=== PATIENT | female | born 1990 | race Hispanic/Latino ===

== ENCOUNTER 2018-02-05 09:49 | Outpatient (CLI) | payer BC | END 2018-02-05 09:50 | disposition home or self-care (01) | LOC: BICULT 09:49 | PROVIDERS: ATTEND Obstetrics & Gynecology | DX: N63.10 Unspecified lump in the right breast, unspecified quadrant (principal) ==

== ENCOUNTER 2020-07-19 09:34 | Day surgery (SDC) | payer BC, OTHER ==
[2020-07-19] MEDS ORDERED: hydrALAZINE 20 MG/ML VIAL SLOW IVP PRN (10:43)
--- NOTE | 2020-07-19 12:32 | ULT ---
US Biophysical Profile History: Covid positive patient with decreased motion Comparison: None Findings: Real-time grayscale evaluation of the gravid uterus was performed. The biophysical profile score is 8/8. The position is breech and the placenta is posterior. Fet al heart rate is documented at 147 bpm. Amniotic fluid index: 11.2 cm Impression: Normal biophysical profile score of 8/8.
--- NOTE | 2020-07-19 12:38 | PRG ---
DATE OF SERVICE: 07/19/2020 REASON FOR PRESENTATION: Biophysical profile and NST at 34 weeks with diabetes, gestational type 2 with COVID-19 acute at 34 weeks and 6 days. HISTORY OF PRESENT ILLNESS: The patient was sent over for BPP and NST. She has recently been diagnosed with CoV-2. She has mild symptoms. Reports an active fetus. Denies contractions. She is also diabetic, pre-gestational, moderate control. Blood sugars have been running 130s to 140s. She is using NPH and metformin. Vital signs are within normal limits today on the Labor and Delivery unit. She is afebrile. She complains of mild cough. Biophysical profile is 8/8 with an DESTINEY of 11, breech presentation. A nonstress test is reactive with a baseline of 140s, positive accelerations, no decelerations. IMPRESSION: 34 weeks on labor and delivery for antepartum testing secondary to absence of positive-pressure ventilation rooms at ambulatory office. PLAN: Discharge home. Keep scheduled followup. ER precautions. Job ID: [id number]
== END 2020-07-19 12:17 | disposition home or self-care (01) ==
LOC: L&D/OP 09:34
PROVIDERS: ATTEND Student in an Organized Health Care Education/Training Program
DX: O36.8130 Decreased fetal movements, third trimester, not applicable or unspecified (principal); O98.513 Other viral diseases complicating pregnancy, third trimester; U07.1 COVID-19; O24.414 Gestational diabetes mellitus in pregnancy, insulin controlled; Z3A.34 34 weeks gestation of pregnancy; Z79.4 Long term (current) use of insulin; Z79.82 Long term (current) use of aspirin; Z79.899 Other long term (current) drug therapy
CPT/HCPCS: 76819

== ENCOUNTER 2020-07-21 18:24 | Emergency (ER) | payer OTHER ==
[2020-07-21 19:15] LABS: Bilirubin Negative (Negative); Blood, Urine Negative (Negative); Clarity Clear (Clear); Glucose, Urine (Dipstick) Greater than 1000 mg/dL (Negative); Ketone, Urine Negative (Negative); Leukocyte Negative Leu/uL (Negative); Nitrite Negative (Negative); Protein, Urine (Dipstick) Negative (Neg-Trace); Specific Gravity, Urine 1.026 (1.002-1.036); Urobilinogen Normal mg/dL (Less than 2); pH, Urine 6.5 (5.0-9.0)
[2020-07-21 19:22] LABS: #Lymphocytes 1.1 thou/uL (1.20-3.40); #Monocytes 0.4 thou/uL (0.11-0.59); #Neutrophils 4.1 thou/uL (1.40-6.50); %Basophils 0.2 % (0.0-1.0); %Eosinophils 0.1 % (0.0-10.0); %Lymphocytes 19.7 % (21.0-51.0); %Monocytes 7.2 % (0.0-10.0); %Neutrophils 72.7 % (42.0-75.0); Hemoglobin 11.5 g/dL (12.0-16.0); Mean Corpuscular HGB CONC 34.7 g/dL (32.0-36.0); Mean Corpuscular Hemoglobin 30.2 pg (27.0-31.0); Mean Corpuscular Volume 87.1 fL (78.0-98.0); Mean Platelet Volume 11.6 fL (7.4-10.4); Platelet Count 113 thou/uL (130-400); RBC Distribution Width 11.8 % (11.5-14.5); Red Blood Cell (RBC) Count 3.82 mill/uL (4.20-5.40); White Blood Cell (WBC) Count 5.6 thou/uL (4.8-10.8)
[2020-07-21 19:43] LABS: ALT (SGPT) 9 U/L (8-55); AST (SGOT) 14 U/L (5-34); Albumin 2.8 g/dL (3.5-5.0); Alkaline Phosphatase 153 U/L (40-110); Anion Gap 13 mmol/L (10-20); BUN (Urea Nitrogen) 9 mg/dL (7.0-18.7); Bilirubin, Total 0.2 mg/dL (0.2-1.2); Calc. Creatinine Clearance 0 mL/min (70-130); Calcium 8.6 mg/dL (7.8-10.44); Carbon Dioxide 21 mmol/L (22-29); Chloride 105 mmol/L (98-107); Estimated GFR-MDRD Greater than 90; Globulin 3.6 g/dL (2.4-3.5); Glucose 252 mg/dL (70-105); Potassium 3.7 mmol/L (3.5-5.1); Protein, Total 6.4 g/dL (6.0-8.3); Sodium 135 mmol/L (136-145)
--- NOTE | 2020-07-21 20:18 | PDOC.CONS ---
<Melinda Laguerre - Last Filed: 07/21/20 21:19> - Consultation Encounter Date: 07/21/20 Encounter Time: 20:10 30YO @ 35 WGA who presented to the ED for evaluation for abdominal tightening. Of note, she tested positive for COVID-19 on 07/18/20. OB hospitalist was consulted for evaluation for a full obstetrical evaluation. On exam, patient had no complaints and was in NAD. PMH: h/o kidney stones, DMII PSH: h/o C/S x3 Meds: metformin, NPH, Humulin, fluoxetine, ASA Allergies: NKDA FH: non-contributory Social: No TAD. Labs: WBC 5.6, H/H 11.5/33.3, Plt 113 Na 135, K 3.7, Cl 105, CO2 21, BUN 9, Cr 0.74, glucose 252, AST/ALT 14/9, alk phos 153 UA: clear, >1000 glucose, no protein, ketones, blood or LE PE: Vitals: BP 121/87, HR 109, RR 18, O2 sat 96% on RA, Tmax 99.4F, Wt 96 kg General: Sitting up comfortably in bed in NAD HEENT: normocephalic, eyes & nares clear, MMM Respiratory: No respiratory distress but dry cough noted Abdomen: gravid : SVE: closed/thick/high, copious amount of thick, white d/c noted with cervical check Skin: clean, dry & intact Neuro: no focal deficits, jewelry technician grossly intact Psych: mood & affect appropriate & WNLs A/P: 30YO @ 35 WGA who presented to the ED for evaluation for abdominal tightening who was noted to be + for COVID-19 on 07/18/2020. contractions, r/o labor: - Reactive NST but baseline @ ~165-170 w/ accels noted. Uterine irritability but no contractions noted on monitor. Cervical check revealed a closed cervix. No concern for PTL. Likely a few [place] contractions in setting of acute illness. - FHTs returned to normal baseline of ~155 s/p ~900mL of 1,000mL fluid bolus. Will give rest of bolus & encouraged aggressive PO hydration at home. COVID-19 infection in 3T : - tested + on 07/18/2020 - Vitals & labwork not concerning for dehydration or severe infection necessitating admission. Recommend home care with aggressive PO hydration and close monitoring of respiratory status. Also recommend close follow-up with PCP via telehealth. - Has a BPP/NST CHAD here on 07/26/20 for continued close monitoring. Vulvovaginal candidiasis: - thick, white d/c noted on exam in setting of hyperglycemia & severe glucosuria. Will empirically treat w/ vaginal clotrimazole x 7 days. pre-GDM: - Likely uncontrolled based on UA & BG level on CMP today. - Instructed to follow-up with PCP this week via telehealth for close monitoring of BG levels & titration of meds PRN. Dispo: Ok to d/c home with instructions for close f/u w/ PCP. Patient was seen and examined by attending, Dr. Jamie Heart, as well who is in agreement with the assessment and plan. <Anton Heart - Last Filed: 07/21/20 23:35> Addendum - Attending - Attending Attestation Date/Time: 07/21/20 [id number] I personally evaluated the patient and discussed the management with Dr. Laguerre. at 35 weeks seen in ER with FORREST flor. also c/o abdominal cramping. FHTs stable, no evidence of active labor at this time. I agree with the History, Examination, Assessment and Plan documented above with any addition or exceptions noted below.
== END 2020-07-21 21:50 | disposition home or self-care (01) ==
LOC: ERS 18:24
DX: O98.513 Other viral diseases complicating pregnancy, third trimester (principal); U07.1 COVID-19; Z3A.35 35 weeks gestation of pregnancy; O98.813 Other maternal infectious and parasitic diseases complicating pregnancy, third trimester; O99.343 Other mental disorders complicating pregnancy, third trimester; F32.9 Major depressive disorder, single episode, unspecified; B37.9 Candidiasis, unspecified; O99.333 Smoking (tobacco) complicating pregnancy, third trimester; O24.113 Pre-existing type 2 diabetes mellitus, in pregnancy, third trimester; E11.9 Type 2 diabetes mellitus without complications
CPT/HCPCS: 36415; 59025; 80053; 81003; 85025; 87086; 99284

== ENCOUNTER 2020-07-26 09:09 | Day surgery (SDC) | payer OTHER ==
[2020-07-26 09:53] VITALS: BP 120/73; TEMP 98.3; BMI 35.1
--- NOTE | 2020-07-26 11:23 | ULT ---
Exam: Nonstress biophysical profile COMPARISON: 07/19/2020 HISTORY: Type 2 diabetes TECHNIQUE: Nonstress biophysical profile was performed. FINDINGS: Single intrauterine gestation Limited evaluation cervix due to shadowing Presentation: Breech Amniotic fluid index 10.4 cm heart tones: 152 bpm Placenta location: Right-sided placenta Nonstress biophysical profile: tone 2 breathing 2 movements 2 Amniotic fluid 2 Total score 8 out of 8 IMPRESSION: Nonstress biophysical profile. Total score is 8 out of 8.
--- NOTE | 2020-07-26 12:06 | PDOC.LDHP ---
Labor and Delivery H&P Chief complaint: decreased movement HPI: 30 y/o at 35w6d, patient of Dr. Barbosa, sent for NST/BPP. Complains of decreased movement and general malaise related to COVID-19. Denies VB, LOF, ctx, or other concerns. Has telemedicine appointment with Dr. Barbosa later today. ROS neg for HEENT, CV, pulm, GI, , neuro, psych, skin, musculoskeletal, or constitutional symptoms other than mentioned above. OB History Details: 3 prior LTCS Current complications: pregestational diabetes, other (COVID-19 positive) Past Medical History: T2DM kidney stones Current medications: pre-brett vitamins, other (NPH, humulin, fluoxitine, metformin, aspirin) Previous surgical history: low tranverse CS (x3) Allergies/Adverse Reactions: Allergies Allergy/AdvReac Type Severity Reaction Status Date / Time No Known Allergies Allergy Verified 07/26/20 09:54 Social history: none - Physical Exam Vital signs reviewed and normal: yes General: NAD, resting Heart: other Lungs: nonlabored breathing Abdomen: gravid Extremeties: no edema FHT: category 1 (150s, mod variability, + accels, no decels) [place] contractions every: none - Assessment 30 y/o at 35w6d with reassuring status with BPP 07/21. - Plan -: D/c home with precautions. Advised to keep appointment for today.
== END 2020-07-26 11:25 | disposition home or self-care (01) ==
LOC: L&D/OP 09:09
PROVIDERS: ATTEND Student in an Organized Health Care Education/Training Program
DX: O98.513 Other viral diseases complicating pregnancy, third trimester (principal); U07.1 COVID-19; O36.8130 Decreased fetal movements, third trimester, not applicable or unspecified; O24.414 Gestational diabetes mellitus in pregnancy, insulin controlled; O34.211 Maternal care for low transverse scar from previous cesarean delivery; Z3A.35 35 weeks gestation of pregnancy; Z79.4 Long term (current) use of insulin; Z79.82 Long term (current) use of aspirin; Z79.899 Other long term (current) drug therapy
CPT/HCPCS: 76819; 99282

== ENCOUNTER 2020-08-03 07:30 | Inpatient (IN) | payer BC, OTHER ==
[2020-08-03] MEDS ORDERED: hydrALAZINE 20 MG/ML VIAL SLOW IVP PRN ×2 (10:51→15:04)
[2020-08-03] MEDS ORDERED: Promethazine HCl 25 MG/ML VIAL IM PRN ×3 (10:51→15:04)
[2020-08-03] MEDS ORDERED: Ondansetron PF 4 MG/2 ML Vial IVP PRN ×3 (10:51→15:04)
[2020-08-03] MEDS ORDERED: Lactated Ringer's 1,000 ML IV SCH (10:51)
[2020-08-03] MEDS ORDERED: Bicitra 30 ML UDCUP PO SCH (10:51)
[2020-08-03] MEDS ORDERED: CEFAZOLIN 2 GM in Premix Bag 1 BAG IVPB SCH (10:51)
[2020-08-03 11:27] VITALS: BMI 36.1
[2020-08-03 11:29] LABS: Mean Corpuscular HGB CONC 34.7 g/dL (32.0-36.0); Mean Corpuscular Hemoglobin 29.7 pg (27.0-31.0); Mean Corpuscular Volume 85.5 fL (78.0-98.0); Platelet Count 150 thou/uL (130-400); RBC Distribution Width 12.9 % (11.5-14.5); Red Blood Cell (RBC) Count 4.03 mill/uL (4.20-5.40); White Blood Cell (WBC) Count 7.2 thou/uL (4.8-10.8)
[2020-08-03 12:01] LABS: Syphilis Antibody Nonreactive (Nonreactive); Syphilis Antibody Index 0.08 S/CO (<1.00 Non-Reactive)
[2020-08-03] MEDS ORDERED: Oxytocin 10 UNITS/ML VIAL ONE (12:05)
--- NOTE | 2020-08-03 12:15 | PDOC.LDHP ---
Labor and Delivery H&P Chief complaint: scheduled section HPI: 30yo at 37w0d by LMP here for RCS due to GHTN, uncontrolled IDDM. Hx of symptomatic COVID 19 earlier this month. Asymptomatic for last 10 days, cough as resolved Allergies/Adverse Reactions: Allergies Allergy/AdvReac Type Severity Reaction Status Date / Time No Known Allergies Allergy Verified 08/03/20 11:27
[2020-08-03] MEDS ORDERED: Ketamine 50 MG/ML (10ML VIAL) ONE (12:37)
[2020-08-03] MEDS ORDERED: Midazolam HCl 2 mg/2 ml Vial ONE (12:38)
--- NOTE | 2020-08-03 13:01 | PDOC.OPDEL ---
OB Operative/Delivery Note Delivery Dr/Surgeon: Chelsey Assist: Abhijit Pre-Delivery Diagnosis: scheduled section Procedure/Post Delivery Dx: repeat low transverse CS (and bilateral salpingectomy) Weeks gestation: 37 Anesthesia: spinal - Findings A Sex: female Weight: 8 lb 11 oz - 1 min: 9 - 5 min: 9 - Additional Findings/Plan Placenta delivered: spontaneous findings: low transverse hysterotomy without extension, normal uterus, normal tubes, normal ovaries Estimated blood loss: 700cc Compilations/Other Findings: breech presentation Post delivery plan: routine recovery
[2020-08-03] MEDS ORDERED: Promethazine HCl 25 MG SUPP PR PRN (13:05)
[2020-08-03] MEDS ORDERED: L&D-Morphine 4 MG/ML VIAL SLOW IVP PRN (13:05)
[2020-08-03] MEDS ORDERED: Ondansetron HCl/PF 4 MG/2 ML Vial IVP PRN (13:05)
[2020-08-03] MEDS ORDERED: HYDROmorphone 2 MG/ML VIAL SLOW IVP PRN (13:05)
[2020-08-03] MEDS ORDERED: Naloxone HCl 0.4 mg/ml Vial IVP PRN ×2 (13:05)
[2020-08-03] MEDS ORDERED: diphenhydrAMINE 50 MG/ML VIAL IVP PRN (13:05)
[2020-08-03] MEDS ORDERED: Naloxone HCl 0.4 mg/ml Vial IV PRN (13:05)
[2020-08-03] MEDS ORDERED: Communication Order-Pharmacy FS SCH (13:15)
[2020-08-03 14:57] LABS: HBSAg Index 0.14 S/CO (0-0.99); Hep B Surf Ag Non-Reactive S/CO (NonReactive)
[2020-08-03] MEDS ORDERED: Dextrose 5% in Water 1,000 ML IV PRN (15:04)
[2020-08-03] MEDS ORDERED: Bisacodyl 10 MG SUPP PR PRN (15:04)
[2020-08-03] MEDS ORDERED: Acetaminophen 325 MG TAB PO PRN (15:04)
[2020-08-03] MEDS ORDERED: Lanolin Ointment 7 GM TUBE TOP PRN (15:04)
[2020-08-03] MEDS ORDERED: Dextrose 50% Abboject 50 ML SYRINGE SLOW IVP PRN (15:04)
[2020-08-03] MEDS ORDERED: diphenhydrAMINE 25 MG CAP PO PRN (15:04)
[2020-08-03] MEDS ORDERED: Zolpidem Tartrate 5 MG TAB PO PRN (15:04)
[2020-08-03 15:15] LABS: ALT (SGPT) 11 U/L (8-55); AST (SGOT) 11 U/L (5-34); Albumin 2.9 g/dL (3.5-5.0); Alkaline Phosphatase 125 U/L (40-110); Anion Gap 15 mmol/L (10-20); BUN (Urea Nitrogen) 8 mg/dL (7.0-18.7); Bilirubin, Total 0.3 mg/dL (0.2-1.2); Calc. Creatinine Clearance 182 mL/min (70-130); Calcium 9.1 mg/dL (7.8-10.44); Carbon Dioxide 24 mmol/L (22-29); Chloride 102 mmol/L (98-107); Estimated GFR-MDRD Greater than 90; Globulin 3.7 g/dL (2.4-3.5); Glucose 154 mg/dL (70-105); Potassium 4.4 mmol/L (3.5-5.1); Protein, Total 6.6 g/dL (6.0-8.3); Sodium 137 mmol/L (136-145)
[2020-08-03] MEDS ORDERED: NS / Oxytocin 40 units/1000ml 1,000 ML ONE (15:15)
[2020-08-03] MEDS: Ketorolac Tromethamine 30 MG/ML VIAL IVP PRN (16:55)
--- NOTE | 2020-08-03 18:05 | OP ---
DATE OF PROCEDURE: 08/03/2020 PREOPERATIVE DIAGNOSES: 1. Intrauterine at 37 weeks and 0 days. 2. Gestational hypertension. 3. Type 2 diabetes, insulin dependent, uncontrolled. 4. Breech presentation. 5. Prior x3, declines trial of labor. 6. Sterilization. POSTOPERATIVE DIAGNOSES: 1. Intrauterine at 37 weeks and 0 days. 2. Gestational hypertension. 3. Type 2 diabetes, insulin dependent, uncontrolled. 4. Breech presentation. 5. Prior x3, declines trial of labor. 6. Sterilization. PROCEDURES PERFORMED: Repeat low transverse section via Pfannenstiel skin incision and bilateral salpingectomy. ESTIMATED BLOOD LOSS: 700 mL. COMPLICATIONS: None. DRAINS: Randhawa catheter. PATHOLOGY: Bilateral fallopian tubes. FINDINGS: Female in [place] breech presentation. Copious clear amniotic fluid. Apgars 9 and 9. Weight is 8 pounds 11 ounces. Hysterotomy without extension. Thin lower uterine segment. Omental adhesions to the anterior abdominal wall. Normal uterus, ovaries, and tubes bilaterally. Excellent hemostasis. DESCRIPTION OF PROCEDURE: The patient was taken to the operating room, where spinal anesthesia was obtained without difficulty. The patient was prepped and draped in a sterile fashion in the dorsal supine position with a leftward tilt. After ensuring adequacy of anesthesia, a Pfannenstiel skin incision was made and carried down to the underlying subcutaneous tissue with a knife. The fascia was nicked in the midline with a knife and carried laterally with the Gamble scissors. The superior aspect of the fascia was tented with 2 Alicia's and dissected off the rectus sharply with the Gamble's. The inferior aspect of the fascia was tented with 2 Alicia's and dissected off the rectus down to the pubic symphysis. Being careful to stay preperitoneal in order to avoid bladder injury. The peritoneum was bluntly entered into and manually retracted. The Anselmo O retractor was placed and the lower uterine segment was incised in a transverse fashion. The breech was brought to the hysterotomy and delivered with standard breech maneuvers without difficulty. The 's cord was clamped and handed to awaiting Cole team. Cord blood was collected and the placenta was allowed to spontaneously deliver. The uterus was cleared of all clots and debris and repaired with a #1 Monocryl in a running locking fashion. Hemostasis was noted. A warm moist lap was placed over the hysterotomy and the uterus was delivered out of the abdomen. The right fallopian tube was grasped and elevated with a Maitland clamp. The windows were made along the arcade vessels in the mesosalpinx. These vessels were then clamped with hemostats. The tube was then incised with the Metzenbaums and the vascular pedicles and the hemostats were tied off with 2-0 chromic. The same procedure was carried out on the left side. Hemostasis was noted. The uterus was placed back into the abdomen. The lap sponge was removed and the pelvis was irrigated and suctioned. Hemostasis was noted of the hysterotomy. The fallopian tube sites were then examined and noted to be hemostatic. The Anselmo O retractor was removed out of the abdomen. The rectus muscles were examined and cauterized of any bleeders. The fascia was reapproximated with 0 PDS x2 sutures with excellent reapproximation. The subcutaneous tissue was irrigated and cauterized of any bleeders and reapproximated with a 2-0 plain gut in a running fashion. The skin was closed with staple and a pressure dressing was applied. The patient tolerated the procedure well. Sponge and needle counts correct x2. The patient was taken to recovery room in stable condition. The patient received Ancef 2 g prior to the procedure. Job ID: [id number]
[2020-08-03] MEDS: Docusate Calcium (SURFAK) 240 MG CAP PO SCH (20:51)
[2020-08-03] MEDS: Ferrous Sulfate 325 MG TAB PO SCH (20:51)
[2020-08-03] MEDS: Simethicone Chewable 80 MG TAB PO PRN (20:59)
[2020-08-04] MEDS: Ketorolac Tromethamine 30 MG/ML VIAL IVP PRN (01:40)
[2020-08-04] MEDS: HYDROcodone/Acetaminophen 5/325 mg Tablet PO PRN ×5 (03:26→22:08)
[2020-08-04] MEDS: Insulin Regular 300 UNITS/3 ML VIAL SC PRN ×5 (04:53→22:03)
--- NOTE | 2020-08-04 06:09 | PDOC.PP ---
Post Progress Note Post Day #: 1 Subjective: doing well. No pain issues PO intake tolerated: yes Flatus: yes Ambulation: yes Vital Signs (12 hours) Temp Pulse Resp BP Pulse Ox 08/04/20 04:00 98.1 F 73 16 119/59 L 08/04/20 00:05 98.5 F 66 16 119/72 08/03/20 20:30 97.8 F 63 16 124/66 98 Weight Weight 217 lb - Physical Examination General: NAD Cardiovascular: no m/r/g Respiratory: clear to auscultation bilaterally, non-labored breathing Abdominal: + bowel sounds, no distention, appropriately TTP Extremities: negative homans (B) Skin: CS incision dry & intact (Original CS dressing still on until noon; states has padmini in place) Neurological: no gross focal deficits Psychiatric: A&Ox3, normal affect Result Diagrams: 08/03/20 11:12 08/03/20 14:41 Additional Labs: Post Labs Hep Bs Antigen Non-Reactive S/CO (NonReactive) 08/03/20 11:12 Blood Type O POSITIVE 08/03/20 11:12 (1) Diabetes Code(s): E11.9 - TYPE 2 DIABETES MELLITUS WITHOUT COMPLICATIONS Status: Acute Qualifiers: Diabetes mellitus type: type 2 Diabetes mellitus complication status: without complication (2) delivery, delivered, current hospitalization Code(s): O82 - ENCOUNTER FOR DELIVERY WITHOUT INDICATION Status: Acute - Assessment/Plan POD1 s/p repeat CS #4, doing well. HX prepreg DM...on metformin 1000mg po BID. BS this AM was 172. Follow sugars. Desires prob DC POD3. Dressing off at noon today. Has padmini in use.
[2020-08-04 06:22] LABS: Hemoglobin 10.3 g/dL (12.0-16.0); Mean Corpuscular HGB CONC 34.3 g/dL (32.0-36.0); Mean Corpuscular Hemoglobin 29.8 pg (27.0-31.0); Mean Corpuscular Volume 86.7 fL (78.0-98.0); Mean Platelet Volume 11.5 fL (7.4-10.4); Platelet Count 118 thou/uL (130-400); RBC Distribution Width 12.8 % (11.5-14.5); Red Blood Cell (RBC) Count 3.46 mill/uL (4.20-5.40); White Blood Cell (WBC) Count 10.3 thou/uL (4.8-10.8)
[2020-08-04] MEDS: Docusate Calcium (SURFAK) 240 MG CAP PO SCH ×2 (08:06→21:55)
[2020-08-04] MEDS: Prenatal Vitamin 1 TAB PO SCH (08:06)
[2020-08-04] MEDS: metFORMIN 500 MG TAB PO SCH ×2 (08:06→16:45)
[2020-08-04] MEDS: Simethicone Chewable 80 MG TAB PO PRN ×2 (08:12→21:56)
[2020-08-04] MEDS: Ferrous Sulfate 325 MG TAB PO SCH ×2 (09:16→23:39)
[2020-08-04] MEDS: Ibuprofen 800 MG TAB PO SCH ×2 (13:55→21:55)
[2020-08-04] MEDS ORDERED: Adacel (T-DAP) 0.5 ML SYRINGE IM ONE (15:04)
[2020-08-05] MEDS: Simethicone Chewable 80 MG TAB PO PRN ×2 (03:03→07:45)
[2020-08-05] MEDS: HYDROcodone/Acetaminophen 5/325 mg Tablet PO PRN ×4 (03:03→18:01)
[2020-08-05] MEDS: Ibuprofen 800 MG TAB PO SCH ×3 (05:33→22:13)
[2020-08-05] MEDS: Ferrous Sulfate 325 MG TAB PO SCH ×2 (07:00→22:08)
[2020-08-05] MEDS: Prenatal Vitamin 1 TAB PO SCH (07:45)
[2020-08-05] MEDS: Docusate Calcium (SURFAK) 240 MG CAP PO SCH ×2 (07:45→22:14)
[2020-08-05] MEDS: metFORMIN 500 MG TAB PO SCH ×2 (07:45→17:24)
--- NOTE | 2020-08-05 08:20 | PRG ---
DATE OF SERVICE: 08/05/2020 Note SUBJECTIVE: The patient is a 30-year-old female, postop day #2 status post a repeat . Her antepartum course was complicated by gestational hypertension and B diabetes. Per , the patient was placed on 1000 mg p.o. b.i.d. of metformin yesterday morning. Her blood sugars over the last 24 hours remain elevated at 159, 162 and 151 postprandial. Fasting this morning was 136. The reports she is tolerating p.o., voiding on her own, having decreased lochia and good pain control. OBJECTIVE: VITAL SIGNS: This morning blood pressure is 142/76, temperature 98.3, pulse of 82, respiratory rate of 16. GENERAL: She appears to be in no acute distress. She is alert, oriented, cooperative, and pleasant to interact with. HEENT: Head is normocephalic, atraumatic. Incision is clean, dry, and intact with suture. ASSESSMENT AND PLAN: The patient is a 30-year-old female, postoperative day #2 status post repeat section with her course complicated by gestational hypertension and B diabetes. We will continue antepartum care here in the hospital. We will continue to watch over the next 24 hours closely how she responds to another day of metformin. Dr. Barbosa will be assuming care tomorrow. They can discuss adjusting medications as needed. Job ID: [id number]
[2020-08-05] MEDS ORDERED: Measles/Mumps/Rubella 10 MCG/0.5 ML VIAL SC ONE (10:30)
[2020-08-05] MEDS: Insulin Regular 300 UNITS/3 ML VIAL SC PRN (11:18)
[2020-08-06] MEDS: Ibuprofen 800 MG TAB PO SCH ×2 (05:28→13:56)
[2020-08-06] MEDS: Docusate Calcium (SURFAK) 240 MG CAP PO SCH (08:36)
[2020-08-06] MEDS: Prenatal Vitamin 1 TAB PO SCH (08:36)
[2020-08-06] MEDS: metFORMIN 500 MG TAB PO SCH ×2 (08:36→16:56)
[2020-08-06] MEDS: HYDROcodone/Acetaminophen 5/325 mg Tablet PO PRN ×2 (08:39→17:52)
[2020-08-06] MEDS: Simethicone Chewable 80 MG TAB PO PRN ×2 (08:39→17:52)
[2020-08-06] MEDS: Ferrous Sulfate 325 MG TAB PO SCH (09:11)
[2020-08-06 09:28] VITALS: BP 130/66; TEMP 98.1
[2020-08-06] MEDS: Insulin Regular 300 UNITS/3 ML VIAL SC PRN ×2 (11:22→16:56)
[2020-08-06] MEDS ORDERED: Measles/Mumps/Rubella 10 MCG/0.5 ML VIAL SC ONE (12:09)
--- NOTE | 2020-08-06 12:10 | PDOC.PP ---
Post Progress Note Post Day #: 3 PO intake tolerated: yes Flatus: yes Ambulation: yes Vital Signs (12 hours) Temp Pulse Resp BP Pulse Ox 08/06/20 08:35 98.1 F 87 20 130/66 98 Weight Weight 217 lb - Physical Examination General: NAD Respiratory: non-labored breathing Abdominal: no distention, appropriately TTP Fundus firm & at: umb-2 Skin: CS incision dry & intact Neurological: no gross focal deficits Psychiatric: normal affect Result Diagrams: 08/04/20 06:08 08/03/20 14:41 Additional Labs: Post Labs Hep Bs Antigen Non-Reactive S/CO (NonReactive) 08/03/20 11:12 Blood Type O POSITIVE 08/03/20 11:12 - Assessment/Plan POD3 s/p RCS and RRS VSSAF Met all postop milestones Baby out of NICU, bottlefeeding Mild postop anemia, asx, cont PNV on DC Rh pos RNI MMR prior to DC DC home with baby, FU 2w
[2020-08-08] MEDS ORDERED: Ibuprofen 800 MG TAB PO SCH (22:00)
== END 2020-08-06 17:56 | disposition home or self-care (01) | DRG 783 ==
LOC: L&D 10:20 → 3SW 15:22
PROVIDERS: ADMIT Student in an Organized Health Care Education/Training Program; ATTEND Student in an Organized Health Care Education/Training Program
PROC: 10D00Z1 Extraction of Products of Conception, Low, Open Approach (ICD-10-PCS; principal; 2020-08-03)
PROC: 0UB70ZZ Excision of Bilateral Fallopian Tubes, Open Approach (ICD-10-PCS; 2020-08-03)
DX: O34.219 Maternal care for unspecified type scar from previous cesarean delivery (principal); O24.12 Pre-existing type 2 diabetes mellitus, in childbirth; D62 Acute posthemorrhagic anemia; O13.4 Gestational [pregnancy-induced] hypertension without significant proteinuria, complicating childbirth; E11.9 Type 2 diabetes mellitus without complications; Z3A.37 37 weeks gestation of pregnancy; Z37.0 Single live birth; O32.1XX0 Maternal care for breech presentation, not applicable or unspecified; Z30.2 Encounter for sterilization
CPT/HCPCS: 36415; 36416; 51702; 80053; 85027; 86780; 86850; 86900; 86901; 87340; 88302; 90707; J0690; J1815; J1885; J2250; J2270; J2405; Q0163

== ENCOUNTER 2020-11-14 12:12 | Outpatient (CLI) | payer OTHER ==
--- NOTE | 2020-11-14 13:58 | RAD ---
THREE VIEWS OF THE LEFT FOOT: 11/14/20 COMPARISON: None. HISTORY: Left foot pain. FINDINGS: There is no displaced fracture or evidence of dislocation. No radiopaque foreign body or subcutaneous gas. If symptoms persists, follow-up MRI may be beneficial to evaluate for a radio-occult osseous ab normality or a soft tissue abnormality to explain the patient's pain. IMPRESSION: No acute osseous abnormality. POS: [facility]
== END 2020-11-14 12:13 | disposition home or self-care (01) ==
LOC: BICRAD 12:12
PROVIDERS: ATTEND Family Medicine
DX: M79.672 Pain in left foot (principal)

== ENCOUNTER 2021-12-04 02:59 | Emergency (ER) | payer OTHER | END 2021-12-04 04:46 | disposition home or self-care (01) | LOC: ERS 02:59 | DX: B34.9 Viral infection, unspecified (principal); E11.9 Type 2 diabetes mellitus without complications; F17.210 Nicotine dependence, cigarettes, uncomplicated; Z79.84 Long term (current) use of oral hypoglycemic drugs; Z79.899 Other long term (current) drug therapy | CPT/HCPCS: 99283 ==

== ENCOUNTER 2022-12-27 21:01 | Emergency (ER) | payer OTHER ==
[2022-12-27] MEDS ORDERED: HYDROcodone/Acetaminophen 10/325 mg Tablet ONE (21:59)
== END 2022-12-27 22:03 | disposition home or self-care (01) ==
LOC: ERS 21:01
DX: N60.01 Solitary cyst of right breast (principal); E11.9 Type 2 diabetes mellitus without complications
CPT/HCPCS: 99284

== ENCOUNTER 2023-06-09 10:18 | Emergency (ER) | payer OTHER ==
[2023-06-09] MEDS ORDERED: Ketorolac Tromethamine 30 MG/ML VIAL ONE (10:58)
[2023-06-09 11:04] LABS: #Monocytes 0.4 thou/uL (0.11-0.59); #Neutrophils 4.3 thou/uL (1.40-6.50); %Basophils 0.5 % (0.0-1.0); %Eosinophils 0.6 % (0.0-10.0); %Lymphocytes 24.7 % (21.0-51.0); %Monocytes 6.3 % (0.0-10.0); %Neutrophils 67.6 % (42.0-75.0); Hematocrit 36.4 % (36.0-47.0); Mean Corpuscular Hemoglobin 28.7 pg (27.0-31.0); Mean Corpuscular Volume 87.1 fl (78.0-98.0); Mean Platelet Volume 11.7 fL (7.4-10.4); Platelet Count 273 10x3/uL (130-400); RBC Distribution Width 12.8 % (11.5-14.5); Red Blood Cell (RBC) Count 4.18 mill/uL (4.20-5.40); White Blood Cell (WBC) Count 6.3 10x3/uL (4.8-10.8)
[2023-06-09 11:21] LABS: ALT (SGPT) 12 U/L (8-55); AST (SGOT) 10 U/L (5-34); Albumin 3.9 g/dL (3.5-5.0); Alkaline Phosphatase 69 U/L (40-110); Anion Gap 9 mmol/L (10-20); BUN (Urea Nitrogen) 9 mg/dL (7.0-18.7); Bilirubin, Total 0.3 mg/dL (0.2-1.2); Calc. Creatinine Clearance 0 mL/min (70-130); Calcium 9.1 mg/dL (7.8-10.44); Carbon Dioxide 26 mmol/L (22-29); Chloride 103 mmol/L (98-107); Estimated GFR 102; Globulin 2.8 g/dL (2.4-3.5); Glucose 258 mg/dL (70-105); Potassium 3.7 mmol/L (3.5-5.1); Protein, Total 6.7 g/dL (6.0-8.3); Sodium 134 mmol/L (136-145)
[2023-06-09 11:54] LABS: SARS-CoV-2 NAA Rapid Test Not Detected (NotDetected)
[2023-06-09 12:10] LABS: BHCG - Serum Negative (NEGATIVE); Pregs Control Background? CLEAR/WHITE (CLR/WHITE); Pregs Control Bar Appear? YES (CONTROL BAR)
== END 2023-06-09 13:08 | disposition home or self-care (01) ==
LOC: ERS 10:18
DX: E11.649 Type 2 diabetes mellitus with hypoglycemia without coma (principal); F17.290 Nicotine dependence, other tobacco product, uncomplicated; Z79.84 Long term (current) use of oral hypoglycemic drugs; Z20.822 Contact with and (suspected) exposure to COVID-19
CPT/HCPCS: 36415; 36416; 71045; 80053; 84703; 85025; 93005; 96361; 96374; J1885

== ENCOUNTER 2023-06-15 09:00 | Emergency (ER) | payer OTHER ==
[2023-06-15] MEDS ORDERED: Ondansetron PF 4 MG/2 ML Vial ONE (09:25)
[2023-06-15 09:29] LABS: #Monocytes 0.6 thou/uL (0.11-0.59); #Neutrophils 7.2 thou/uL (1.40-6.50); %Basophils 0.3 % (0.0-1.0); %Eosinophils 0.1 % (0.0-10.0); %Lymphocytes 12.9 % (21.0-51.0); %Monocytes 6.4 % (0.0-10.0); %Neutrophils 80.1 % (42.0-75.0); Hematocrit 39.2 % (36.0-47.0); Hemoglobin 13.1 g/dL (12.0-16.0); Mean Corpuscular HGB CONC 33.4 g/dL (32.0-36.0); Mean Corpuscular Hemoglobin 28.7 pg (27.0-31.0); Mean Platelet Volume 11.2 fL (7.4-10.4); Platelet Count 310 10x3/uL (130-400); RBC Distribution Width 13.2 % (11.5-14.5); Red Blood Cell (RBC) Count 4.56 mill/uL (4.20-5.40)
[2023-06-15 09:44] LABS: BHCG - Serum Negative (NEGATIVE); Pregs Control Background? CLEAR/WHITE (CLR/WHITE); Pregs Control Bar Appear? YES (CONTROL BAR)
[2023-06-15 09:48] LABS: ALT (SGPT) 14 U/L (8-55); AST (SGOT) 11 U/L (5-34); Albumin 4.6 g/dL (3.5-5.0); Alkaline Phosphatase 71 U/L (40-110); Anion Gap 15 mmol/L (10-20); BUN (Urea Nitrogen) 10 mg/dL (7.0-18.7); Bilirubin, Total 0.4 mg/dL (0.2-1.2); Calc. Creatinine Clearance 0 mL/min (70-130); Calcium 9.9 mg/dL (7.8-10.44); Carbon Dioxide 26 mmol/L (22-29); Chloride 99 mmol/L (98-107); Estimated GFR 99; Globulin 3.6 g/dL (2.4-3.5); Glucose 183 mg/dL (70-105); Lipase 17 U/L (8-78); Potassium 3.8 mmol/L (3.5-5.1); Protein, Total 8.2 g/dL (6.0-8.3); Sodium 136 mmol/L (136-145)
[2023-06-15 10:20] LABS: Bacteria/HPF None Seen HPF (None Seen); Bilirubin Negative (Negative); Blood, Urine Negative (Negative); CAUTI Indications for Culture Pelvic or flank pain; Clarity Clear (Clear); Glucose, Urine (Dipstick) Normal (Negative); Ketone, Urine Negative (Negative); Leukocyte Negative Leu/uL (Negative); Nitrite Negative (Negative); Protein, Urine (Dipstick) 50 mg/dL (Neg-Trace); RBC/HPF 0-3 HPF (0-3); Specific Gravity, Urine 1.025 (1.002-1.036); Squamous Epithelial 0-3 HPF (0-3); Urobilinogen Normal mg/dL (Less than 2); WBC/HPF 0-3 HPF (0-3)
[2023-06-15 10:22] LABS: Urine Culture Reflex No No
== END 2023-06-15 11:06 | disposition home or self-care (01) ==
LOC: ERS 09:00
DX: R19.7 Diarrhea, unspecified (principal); R11.2 Nausea with vomiting, unspecified; E11.9 Type 2 diabetes mellitus without complications; F17.290 Nicotine dependence, other tobacco product, uncomplicated; Z79.84 Long term (current) use of oral hypoglycemic drugs; Z79.4 Long term (current) use of insulin
CPT/HCPCS: 80053; 81001; 83690; 84703; 85025; 96374; J2405

== ENCOUNTER 2023-06-17 08:34 | Emergency (ER) | payer OTHER ==
[2023-06-17] MEDS ORDERED: Ketorolac Tromethamine 30 MG/ML VIAL ONE (09:41)
[2023-06-17] MEDS ORDERED: Ondansetron PF 4 MG/2 ML Vial ONE (09:41)
[2023-06-17 09:45] LABS: #Monocytes 0.4 thou/uL (0.11-0.59); #Neutrophils 9.2 thou/uL (1.40-6.50); %Basophils 0.2 % (0.0-1.0); %Eosinophils 0.2 % (0.0-10.0); %Lymphocytes 6.7 % (21.0-51.0); %Monocytes 3.7 % (0.0-10.0); %Neutrophils 88.9 % (42.0-75.0); Hematocrit 40.5 % (36.0-47.0); Hemoglobin 13.5 g/dL (12.0-16.0); Mean Corpuscular HGB CONC 33.3 g/dL (32.0-36.0); Mean Corpuscular Hemoglobin 28.4 pg (27.0-31.0); Mean Corpuscular Volume 85.3 fl (78.0-98.0); Mean Platelet Volume 10.8 fL (7.4-10.4); Platelet Count 260 10x3/uL (130-400); RBC Distribution Width 13.1 % (11.5-14.5); Red Blood Cell (RBC) Count 4.75 mill/uL (4.20-5.40); White Blood Cell (WBC) Count 10.4 10x3/uL (4.8-10.8)
[2023-06-17 09:53] LABS: BHCG - Serum Negative (NEGATIVE); Pregs Control Background? CLEAR/WHITE (CLR/WHITE); Pregs Control Bar Appear? YES (CONTROL BAR)
[2023-06-17] MEDS ORDERED: Iopamidol-370 76% 500 ML MDV (1 ML CHARGE) ONE (09:55)
[2023-06-17 10:09] LABS: ALT (SGPT) 14 U/L (8-55); AST (SGOT) 11 U/L (5-34); Albumin 4.3 g/dL (3.5-5.0); Alkaline Phosphatase 72 U/L (40-110); Anion Gap 13 mmol/L (10-20); BUN (Urea Nitrogen) 12 mg/dL (7.0-18.7); Calc. Creatinine Clearance 0 mL/min (70-130); Calcium 9.4 mg/dL (7.8-10.44); Carbon Dioxide 25 mmol/L (22-29); Chloride 101 mmol/L (98-107); Estimated GFR 103; Globulin 3.6 g/dL (2.4-3.5); Glucose 152 mg/dL (70-105); Lipase 16 U/L (8-78); Potassium 3.6 mmol/L (3.5-5.1); Protein, Total 7.9 g/dL (6.0-8.3); Sodium 135 mmol/L (136-145)
[2023-06-17 10:20] LABS: Bacteria/HPF None Seen HPF (None Seen); Bilirubin Negative (Negative); Blood, Urine Negative (Negative); CAUTI Indications for Culture Pelvic or flank pain; Clarity Clear (Clear); Glucose, Urine (Dipstick) Normal (Negative); Ketone, Urine 20 mg/dL (Negative); Leukocyte Negative Leu/uL (Negative); Nitrite Negative (Negative); Protein, Urine (Dipstick) 30 mg/dL (Neg-Trace); RBC/HPF 0-3 HPF (0-3); Specific Gravity, Urine 1.028 (1.002-1.036); Urobilinogen Normal mg/dL (Less than 2); WBC/HPF 0-3 HPF (0-3); pH, Urine 8.5 (5.0-9.0)
[2023-06-17 10:22] LABS: Urine Culture Reflex No No
== END 2023-06-17 10:50 | disposition home or self-care (01) ==
LOC: ERS 08:34
DX: K52.9 Noninfective gastroenteritis and colitis, unspecified (principal); E11.9 Type 2 diabetes mellitus without complications; F17.290 Nicotine dependence, other tobacco product, uncomplicated; Z79.4 Long term (current) use of insulin; Z79.84 Long term (current) use of oral hypoglycemic drugs
CPT/HCPCS: 74177; 80053; 81001; 83690; 84703; 85025; 96374; 96375; J1885; J2405; Q9967

== ENCOUNTER 2025-05-18 11:06 | Emergency (ER) | payer SELFPAY ==
[2025-05-18] MEDS ORDERED: Ketorolac Tromethamine 30 MG (1 mL) VIAL ONE (11:44)
[2025-05-18] MEDS ORDERED: Ondansetron PF 4 MG/2 ML Vial ONE (11:44)
[2025-05-18 11:56] LABS: #Basophils 0.04 10x3/uL (0.0-0.2); #Eosinophils 0.06 10x3/uL (0.0-0.7); #Monocytes 0.43 10x3/uL (0.11-0.59); #Neutrophils 4.30 10x3/uL (1.40-6.50); %Basophils 0.6 % (0.0-1.0); %Eosinophils 0.9 % (0.0-10.0); %Lymphocytes 23.3 % (21.0-51.0); %Monocytes 6.8 % (0.0-10.0); %Neutrophils 68.1 % (42.0-75.0); Hematocrit 41.2 % (36.0-47.0); Hemoglobin 14.2 g/dL (12.0-16.0); Mean Corpuscular Hemoglobin 30.5 pg (27.0-31.0); Mean Corpuscular Volume 88.4 fL (78.0-98.0); Platelet Count 269 10x3/uL (130-400); Red Blood Cell (RBC) Count 4.66 mill/uL (4.20-5.40); White Blood Cell (WBC) Count 6.32 10x3/uL (4.8-10.8)
[2025-05-18 11:59] LABS: BHCG - Serum Negative (NEGATIVE); Pregs Control Background? CLEAR/WHITE (CLR/WHITE); Pregs Control Bar Appear? YES (CONTROL BAR)
[2025-05-18 12:09] LABS: ALT (SGPT) 19 U/L (Less than 34); AST (SGOT) 38 U/L (11-34); Albumin 4.0 g/dL (3.1-4.5); Alkaline Phosphatase 141 U/L (40-110); Anion Gap 17 mmol/L (10-20); BUN (Urea Nitrogen) 9 mg/dL (7.0-18.7); Bilirubin, Total 0.2 mg/dL (0.3-1.2); Calc. Creatinine Clearance 0 mL/min (70-130); Calcium 9.2 mg/dL (7.8-10.44); Carbon Dioxide 21 mmol/L (22-29); Chloride 99 mmol/L (98-107); Globulin 4.5 g/dL (2.4-3.5); Glucose 384 mg/dL (70-105); Lipase 40 U/L (8-78); Potassium 4.2 mmol/L (3.5-5.1); Sodium 133 mmol/L (136-145)
[2025-05-18 12:33] LABS: Pregnancy Test - Urine (BHCG) Negative (Negative); Pregu Control Background? CLEAR/WHITE (CLR/WHITE); Pregu Control Bar Appear? YES (CONTROL BAR)
[2025-05-18 12:34] LABS: Bacteria/HPF None Seen HPF (None Seen); CAUTI Indications for Culture Pelvic or flank pain; Glucose, Urine (Dipstick) Greater than 1000 mg/dL (Negative); Leukocyte Negative Leu/uL (Negative); Protein, Urine (Dipstick) Negative (Neg-Trace); RBC/HPF 0-3 HPF (0-3); Specific Gravity, Urine 1.040 (1.002-1.036); WBC/HPF 0-3 HPF (0-3)
[2025-05-18 12:35] LABS: Urine Culture Reflex No No
== END 2025-05-18 14:09 | disposition home or self-care (01) ==
LOC: ERS 11:06
DX: E86.0 Dehydration (principal); N20.0 Calculus of kidney; E11.9 Type 2 diabetes mellitus without complications; F17.290 Nicotine dependence, other tobacco product, uncomplicated
CPT/HCPCS: 74176; 80053; 81001; 81025; 83690; 84703; 85025; 93005; 96361; 96374; 96375; J1885; J2405